=== PATIENT | female | born 1990 | race Caucasian/White ===

== ENCOUNTER 2017-03-01 23:29 | Inpatient (IN) | payer SELFPAY ==
[~2017-03-01] VITALS: Ht 175.3 cm; Wt 79.8 kg
[2017-03-01 23:34] VITALS: BP 150/87
[2017-03-02] VITALS (9 sets, daily range): BP systolic 93–126; BP diastolic 51–75
[2017-03-02 00:53] LABS: ABSOLUTE LYMPHOCYTES 1.9 thou/uL (0.8-5.3); ABSOLUTE MONOCYTES 0.5 thou/uL (0.0-1.2); BASOPHILS 0.4 %; EOSINOPHILS 0.6 %; HEMATOCRIT 39.7 % (37.0-47.0); HEMOGLOBIN 13.5 gm/dL (12.0-15.0); LYMPHOCYTES 25.1 %; MCH 31.4 pg (26.0-34.0); MCHC 33.8 g/dL (28.0-37.0); MCV 92.7 fL (80.0-100.0); MONOCYTES 6.7 %; NUCLEATED RBCS 0 /100WBC; PLATELET COUNT* 240 thou/uL (150-400); POLYS 67.2 %; RBC 4.29 mil/uL (4.20-5.00); WBC 7.4 thou/uL (4.0-11.0)
[2017-03-02 01:08] LABS: ANION GAP 8 mmol/L (7-16); BUN 15 mg/dL (7-18); CALCIUM 9.2 mg/dL (8.5-10.1); CHLORIDE 107 mmol/L (98-107); CO2 27 mmol/L (21-32); CREATININE 0.8 mg/dL (0.6-1.3); GLUCOSE 114 mg/dL (70-99); SODIUM 142 mmol/L (136-145)
[2017-03-02 01:15] LABS: ALBUMIN 3.5 g/dL (3.4-5.0); ALKALINE PHOSPHATASE 68 U/L (46-116); LIPASE 81 U/L (73-393); MAGNESIUM 1.9 mg/dL (1.8-2.4); SGOT 11 U/L (15-37); SGPT 21 U/L (30-65); TOTAL BILIRUBIN 0.2 mg/dL (<0.1-1.0); TOTAL PROTEIN 6.9 g/dL (6.4-8.2); TROPONIN-I LEVEL <0.06 ng/mL (<0.06)
[2017-03-02 03:20] LABS: URINE BILIRUBIN NEGATIVE (Negative); URINE BLOOD NEGATIVE (Negative); URINE CLARITY CLEAR; URINE COLOR YELLOW; URINE GLUCOSE-RANDOM NEGATIVE (Negative); URINE KETONES NEGATIVE (Negative); URINE LEUKOCYTES-REFLEX NEGATIVE (Negative); URINE NITRITE-REFLEX NEGATIVE (Negative); URINE PROTEIN NEGATIVE (Negative); URINE UROBILINOGEN 0.2 E.U./dl (0.2-1.0)
[2017-03-02 04:00] LABS: AMP/METHAMP Negative (Negative); BARBITURATES Negative (Negative); BENZODIAZEPINES Negative (Negative); COCAINE Negative (Negative); METHADONE Negative (Negative); OPIATES Negative (Negative); PCP Negative (Negative); THC Negative (Negative)
[2017-03-03 03:47] VITALS: BP 103/55
[2017-03-03 07:30] VITALS: BP 92/67
[2017-03-03] MEDS ORDERED: VITAMIN D1000 UNI1 PO (08:58)
[2017-03-03] MEDS ORDERED: INDERAL LA60 MG PO ×2 (08:58→09:08)
[2017-03-03 09:41] VITALS: BP 92/67
--- NOTE | 2017-03-03 17:35 | EKG ---
[place] [address] ELECTROCARDIOGRAM REPORT Name: MARKUS MATUTE Room: [address] M.R.#: [id number] Admission: 03/02/17 Attend Phys: Alexandra Rogers Discharge: 03/03/17 Date of : 88 Report #: [id number] THIS REPORT FOR: //name// [facility] ED Test Date: 2017-03-01 Test Time: 23:40:37 Pat Name: MARKUS MATUTE Department: Room: [facility] Gender: F [employer] Job Setter: FEDERICA Gonsales : 1990 Requested By: Rio Quinones Order Number: [id number] MD: Joon Craven Measurements Intervals [place] Rate: 102 P: 77 NM: 147 QRS: 53 QRSD: 87 T: 70 QT: 354 QTc: 462 Interpretive Statements Sinus tachycardia RSR' in V1 or V2, right VCD or RVH No previous ECG available for comparison Electronically Signed On 03-03-2017 17:35:38 [employer]SELING PROGRAM LEADER by Joon Craven [email or web address] <ELECTRONICALLY SIGNED> By: Joon Craven MD, [facility] 03/03/17 1735 2340 2340 Joon Craven MD, [facility] /EPI
== END 2017-03-03 10:28 | disposition home or self-care (01) | DRG 645 ==
LOC: M.ERS 23:29 → M.TBA-ER 03-02 02:34 → M.2W 03-02 02:34 → M.ICU 03-02 03:20 → M.2W 03-02 20:43
PROVIDERS: Emergency Medicine Emergency Medical Services; ADMIT Internal Medicine
DX: E05.90 Thyrotoxicosis, unspecified without thyrotoxic crisis or storm (principal)